=== PATIENT | male | born 1940 | race Caucasian/White ===

== ENCOUNTER 2021-07-18 11:29 | Emergency (ER) | payer MEDICARE, SELFPAY ==
[2021-07-18 11:56] VITALS: BP 171/83; PULSE 71; RESP 21; TEMP 36.7; O2SAT 97; BMI 26.2
--- NOTE | 2021-07-18 12:16 | XR_ITS ---
WS: [id number] Exam: XR chest 1V portable [id number] Date/Time of Exam: 07/18/2021 12:16 PM Reason For Exam: worsening copd Comparison 10/05/2018. Mild groundglass infiltrate noted in the left lower lung zone suspicious for pneumonia. Superimposed chronic interstitial changes noted. There is pulmonary hyperinflation which may indicate COPD. Postop erative changes of previous thoracotomy on the right. Normal cardiomediastinal silhouette. Bilateral apical pleural thickening. XR/XR chest 1V portable [id number] IMPRESSION: 1. Mild groundglass infiltrates seen in the left lower lung zone suspicious for developing pneumonia. 2. Pulmonary hyperinflation which may indicate COPD. Status post prior right-si ded thoracotomy.
--- NOTE | 2021-07-18 12:24 | W.ED.GENADLT ---
Documented by User: PARVIN Zavala 07/18/21 14:15 HPI - General Adult General: Chief complaint: Shortness of Breath/Dyspnea Stated complaint: SOB R leg has sharp pain Time Seen by Provider: 07/18/21 12:08 History of Present Illness: HPI narrative: Says his right calf hurt when he got out of the car today to go shopping at [employer]. Has shoppped. Patient says the leg is pretty much quit hurting. Has not had any other problems with it. Has no history of clots. Has not had any increased shortness of breath. 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 He denies any other problems. Has not been vaccinated. Denies fever chills chest pain. Patient recently completed antibiotics for his lungs and finished those 3 days ago when he was on levofloxacin at that time. He did not have a chest x-ray done. Onset (ago): year(s) Severity: mild Associated symptoms: Reports no associated symptoms and dyspnea (Has had for years has worsened over the last couple years); Deny rash or vomiting Review of Systems Eyes: Denies: eye discharge ENMT: Denies: throat pain, oral sores or nasal congestion Resp: Reports: dyspnea (Has had for years has worsened over the last couple years), non-productive cough and other (Patient is desiring steroid for his nebulizer., Patient has 1 lung.); Denies: wheezing or stridor GI: Denies: vomiting or diarrhea Skin/Breast: Denies: rash Physical Exam Const: COMMON NORMALS: no acute distress (Child appears very well is playful in no distress) GENERAL APPEARANCE: cooperative HENMT: COMMON NORMALS: normocephalic, external ears normal, EAC's normal, TM's normal bilaterally and Normal external nose present HEAD & SCALP: normal to inspection and normocephalic FACE & SINUS: normal facial exam NOSE: Normal external nose present and No nasal discharge present EXTERNAL EAR: Yes external ears normal EXTERNAL AUDITORY CANAL: EAC's normal TYMPANIC MEMBRANE: TM's normal bilaterally MOUTH: Normal oral and palatal mucosa present THROAT: posterior oropharynx normal Eye: COMMON NORMALS: conjunctivae normal CONJUNCTIVA: Yes conjunctivae normal Lymph: LYMPHATIC: no lymphadenopathy noted Chest: COMMONS NORMALS: normal inspection of the chest Resp: COMMON NORMALS: normal respiratory effort, No retractions and No use of accessory muscles AUSCULTATION: rhonchi left lower and breath sounds absent on the right Cardio: COMMON NORMALS: regular rate and regular rhythm RATE: regular rate RHYTHM: regular rhythm GI: COMMON NORMALS: Normal to inspection, nondistended, normoactive bowel sounds present Extremity: COMMON NORMALS: normal to inspection NARRATIVE EXTREMITY EXAM: Right lower extremity with negative Holmans, no swelling redness noted no pain on palpation Skin: COMMON NORMALS: no rashes or lesions noted GENERAL SKIN EXAM: no rashes or lesions noted Course Vital Signs: Vital signs: Vital Signs Temperature 98.1 F 07/18/21 11:56 Pulse Rate 71 07/18/21 11:56 Respiratory Rate 21 H 07/18/21 11:56 Blood Pressure 171/83 07/18/21 11:56 Pulse Oximetry 97 07/18/21 11:56 MDM - General Adult MDM Narrative: Medical decision making narrative: Patient stable. No longer has any calf pain. That cleared up when he is walk around [facility]. Has recently been treated for lung infection, chest x-ray was not done. He took 5 days of levofloxacin said he felt much better after that. Patient is also asking for prescription of Pulmicort which she said is helped him in the past. Did chest x-ray showed groundglass infiltrate left lower lobe. I do not have baseline compare this with. Patient is not having increased shortness of breath the last 2 to 3 weeks. Denies any Covid related symptoms. Patient is unvaccinated against Covid. Strong encourage patient follow-up with Gabriela Lira APN first next week for recheck. Take medication as directed. Discharge Plan Discharge Patient Disposition: Home Clinical Impression: Cough Condition: Stable Prescriptions: New Zithromax Z-Eleno 250 mg tablet See Rx Instructions .ROUTE .COMPLEX Qty: 6 RF: 0 prednisone 20 mg tablet 20 mg PO DAILY Qty: 7 RF: 0 Pulmicort 1 mg/2 mL suspension for nebulization 1 mg inhalation DAILY Qty: 10 RF: 0 Discharge Orders: Discharge ED (Routine); Ordered 07/18/21 Ordered By: Jose Angel Serrano Referrals: Gerald Solorzano, [Primary Care Provider] - Discharge Diet: Usual diet Discharge Activity: Increase activity as tolerated Patient Instructions: COPD (Chronic Obstructive Pulmonary Disease) (ED) Activity Restrictions/Additional Instructions: Follow-up with medical provider as directed. Take medications as prescribed. Return to the ER or your medical provider if condition worsens. Please read and understand discharge instructions. If any questions ask please. Follow-up with PARVIN Jenkins next week and have chest x-ray done to evaluate for effectiveness of current therapy. Coding Level of Care Code ED Customer Success Specialist for Chg Fwd Exam Comprehensive Documented by User: Smith Love MD 07/18/21 15:13 HPI - General Adult General: Chief complaint: Shortness of Breath/Dyspnea Stated complaint: SOB R leg has sharp pain Time Seen by Provider: 07/18/21 12:08 Course ED course: I was available for consultation and supervision from the nurse practitioner during the time the patient was seen in the emergency department. kfs Vital Signs: Vital signs: Vital Signs Temperature 98.1 F 07/18/21 11:56 Pulse Rate 71 07/18/21 11:56 Respiratory Rate 21 H 07/18/21 11:56 Blood Pressure 171/83 07/18/21 11:56 Pulse Oximetry 97 07/18/21 11:56 Discharge Plan Discharge Patient Disposition: Home Clinical Impression: Cough Condition: Stable Prescriptions: New Zithromax Z-Eleno 250 mg tablet See Rx Instructions .ROUTE .COMPLEX Qty: 6 RF: 0 prednisone 20 mg tablet 20 mg PO DAILY Qty: 7 RF: 0 Pulmicort 1 mg/2 mL suspension for nebulization 1 mg inhalation DAILY Qty: 10 RF: 0 Discharge Orders: Discharge ED (Routine); Ordered 07/18/21 Ordered By: Jose Angel Serrano Referrals: Gerald Solorzano DO [Primary Care Provider] - Discharge Diet: Usual diet Discharge Activity: Increase activity as tolerated Patient Instructions: COPD (Chronic Obstructive Pulmonary Disease) (ED) Activity Restrictions/Additional Instructions: Follow-up with medical provider as directed. Take medications as prescribed. Return to the ER or your medical provider if condition worsens. Please read and understand discharge instructions. If any questions ask please. Follow-up with PARVIN Jenkins next week and have chest x-ray done to evaluate for effectiveness of current therapy. Coding Level of Care Code ED Customer Success Specialist for Marc Fwjayne Exam Comprehensive
== END 2021-07-18 13:00 | disposition home or self-care (01) ==
PROVIDERS: Emergency Provider Nurse Practitioner Family; PCP Family Medicine
DX: R05.9 Cough, unspecified (principal)
CPT/HCPCS: 71045; 99282

== ENCOUNTER 2021-09-11 13:53 | Emergency (ER) | payer MEDICARE, SELFPAY ==
[2021-09-11 14:23] VITALS: BP 140/71; PULSE 97; RESP 20; TEMP 38; O2SAT 91; BMI 26.1
--- NOTE | 2021-09-11 14:32 | XR_ITS ---
WS: [id number] XR chest 1V portable [id number] REASON FOR EXAM: sob FINDINGS: The same reticular and groundglass lung opacities seen in the periphery of the left lower lung field on 07/18 and 07/23/2021 are again noted and increased. There are also now some linear lung opacities in the more medial left lower lung. There appear to be some areas of reticular and groundglass density within the right lower lung not pr eviously noted. No other interval change or new finding. XR/XR chest 1V portable [id number] IMPRESSION: Progression of left lung abnormality which presumably represents subacute pneum onitis. There also appears to be new involvement of the right lower lung.
--- NOTE | 2021-09-11 14:38 | PC.NURSE ---
debra placed on 2l NC supplemental oxygen in waiting room
[2021-09-11 15:04] LABS: Hematocrit 41.9 % (42.0-52.0); Hemoglobin 14.2 g/dL (11.7-16.6); Lymphocytes # 0.5 10^3/uL (0.8-4.8); Mean Corpuscular HGB Conc 33.9 g/dL (30.0-36.0); Mean Corpuscular Hemoglobin 31.6 pg (28.0-34.0); Mean Corpuscular Volume 93.1 fl (80-94); Mean Platelet Volume 9.4 fL (7.4-10.4); Monocytes # 0.3 10^3/uL (0.2-0.9); Monocytes % 6.8 %; Neutrophils # 3.79 10^3/uL (1.8-7.7); Neutrophils % 82.8 %; Nucleated Red Blood Cells % 0 %; Platelet Count 126 10^3/cmm (130-400); Red Cell Distribution Width 14.6 % (12.1-15.1); White Blood Count 4.6 10^3/uL (4.0-10.0)
[2021-09-11 15:35] LABS: Alanine Aminotransferase 38 U/L (0-41); Albumin Level 3.9 g/dL (3.5-5.2); Alkaline Phosphatase 72 IU/L (40-130); Anion Gap 18.9 (5-19); Aspartate Amino Transferase 44 U/L (0-40); Blood Urea Nitrogen 11 mg/dL (8-23); Calcium 8.1 mg/dL (8.5-10.5); Carbon Dioxide 22 mmol/L (22-29); Chloride 97 mmol/L (98-107); Globulin 3.2 g/dL (1.3-4.6); Glucose 119 mg/dL (65-115); Osmolality Calculated 279 mOsm/kg (285-295); Potassium 3.9 mmol/L (3.5-5.1); Sodium 134 mmol/L (136-145); Total Bilirubin 1.2 mg/dL (0.15-1.2); Total Protein 7.1 g/dL (6.6-8.7)
--- NOTE | 2021-09-11 15:41 | W.ED.COVID ---
HPI - COVID General: Chief Complaint: Shortness of Breath/Dyspnea Stated Complaint: SOB/FEVER/CONGESTION Time Seen by Provider: 09/11/21 15:52 Triage information: Has fever, cough or shortness of breath. No known COVID + exposure last 14 days History of Present Illness: HPI Narrative: Patient seen at [facility] [address] yesterday placed on cefdinir 300 mg. Patient here because he still has a fever. Patient was evaluated in waiting room. Patient does not appear any acute distress COVID Results: SARS-CoV-2 (PCR) Pending 09/11/21 14:45 09/11/21 Coronavirus Type 229E (PCR) Pending 09/11/21 14:45 09/11/21 Course Vital Signs: Vital signs: Vital Signs Temperature 100.4 F H 09/11/21 14:23 Pulse Rate 97 09/11/21 14:23 Respiratory Rate 20 H 09/11/21 14:23 Blood Pressure 140/71 09/11/21 14:23 Pulse Oximetry 91 09/11/21 14:23 MDM - COVID MDM Narrative: Medical decision making narrative: Brief history and physical exam was performed as part of the triage process. Due to current ED wait time patient will be placed in waiting room until a room becomes available. Explained to patient he/she will be seen in order of severity. Patient is currently safe to wait in the waiting room until we can get them placed. Patient informed that if condition worsens at any time to please let the vest front presser know. Patient had been placed on oxygen while in the waiting room I discussed with patient our plan results of his chest x-ray and labs were available right now. Patient is requesting go home. Patient was placed on cefdinir yesterday by [facility] [address]. Patient says he does not want to wait for results and patient states if he has COVID he has COVID. try to get patient to stay and wait test results. Patient and will discuss this matter. Advised patient that he should stay and be evaluated further. Patient is unvaccinated. When going back to check on the patient triage nurse found that the patient had left. Lab Data: Labs: Lab Results 09/11/21 09/11/21 14:45 14:45 WBC 4.6 10^3/uL 10^3/ uL (4.0-10.0) RBC 4.50 10^6/uL 10^6 /uL (4.1-5.3) Hgb 14.2 g/dL g/dL (11.7-16.6) Hct 41.9 % L % (42.0-52.0) MCV 93.1 fl fl (80-94) MCH 31.6 pg pg (28.0-34.0) MCHC 33.9 g/dL g/dL (30.0-36.0) RDW 14.6 % % (12.1-15.1) Plt Count 126 10^3/cmm L 10 ^3/cmm (130-400) MPV 9.4 fL fL (7.4-10.4) Neut % (Auto) 82.8 % % Lymph % (Auto) 10.0 % % [place] % (Auto) 6.8 % % Eos % (Auto) 0.0 % % Baso % (Auto) 0.0 % % Neut # (Auto) 3.79 10^3/uL 10^3 /uL (1.8-7.7) Lymph # (Auto) 0.5 10^3/uL L 10^ 3/uL (0.8-4.8) [place] # (Auto) 0.3 10^3/uL 10^3/ uL (0.2-0.9) Eos # (Auto) 0.0 10^3/uL 10^3/ uL (0.0-0.8) Baso # (Auto) 0.0 10^3/uL 10^3/ uL (0.0-0.1) Nucleated RBC % (a uto) 0 % % Nucleated RBCs # 0.0 /100WBC /100W BC Sodium 134 mmol/L L mmol /L (136-145) Potassium 3.9 mmol/L mmol/L (3.5-5.1) Chloride 97 mmol/L L mmol/ L (98-107) Carbon Dioxide 22 mmol/L mmol/L (22-29) Anion Gap 18.9 (5-19) BUN 11 mg/dL mg/dL (8-23) Creatinine 0.8 mg/dL mg/dL (0.7-1.2) GFR Calculation Not Reportable Glucose 119 mg/dL H mg/dL (65-115) Calculated Osmolal ity 279 mOsm/kg L mOs m/kg (285-295) Calcium 8.1 mg/dL L mg/dL (8.5-10.5) Total Bilirubin 1.2 mg/dL mg/dL (0.15-1.2) AST 44 U/L H U/L (0-40) ALT 38 U/L U/L (0-41) Alkaline Phosphata se 72 IU/L IU/L (40-130) Total Protein 7.1 g/dL g/dL (6.6-8.7) Albumin 3.9 g/dL g/dL (3.5-5.2) Globulin 3.2 g/dL g/dL (1.3-4.6) COVID Results: SARS-CoV-2 (PCR) Pending 09/11/21 14:45 09/11/21 Coronavirus Type 229E (PCR) Pending 09/11/21 14:45 09/11/21 Discharge Plan Discharge Patient Disposition: Left Against Medical Advice Condition: Stable Prescriptions: No Action Zithromax Z-Eleno 250 mg tablet See Rx Instructions .ROUTE .COMPLEX Qty: 6 RF: 0 prednisone 20 mg tablet 20 mg PO DAILY Qty: 7 RF: 0 Pulmicort 1 mg/2 mL suspension for nebulization 1 mg inhalation DAILY Qty: 10 RF: 0 Patient Instructions: Opioid Safety Coding Level of Care Code ED Automobile Rental Agent for Marc Roberts
[2021-09-11 16:42] LABS: Adenovirus Not Detected (NOT DETECT); Chlamydia Pneumoniae Not Detected (NOT DETECT); Coronavirus 229E,HKU1,NL63,OC4 Not Detected (NOT DETECT); Human Metapneumovirus Not Detected (NOT DETECT); Human Rhinovirus/Enterovirus Not Detected (NOT DETECT); Influenza A Not Detected (NOT DETECT); Influenza A H1 Not Detected (NOT DETECT); Influenza A H1-2009 Not Detected (NOT DETECT); Influenza A H3 Not Detected (NOT DETECT); Influenza B Not Detected (NOT DETECT); Mycoplasma Pneumoniae Not Detected (NOT DETECT); Parainfluenza Virus Type 1 Not Detected (NOT DETECT); Parainfluenza Virus Type 2 Not Detected (NOT DETECT); Parainfluenza Virus Type 3 Not Detected (NOT DETECT); Parainfluenza Virus Type 4 Not Detected (NOT DETECT); Respiratory Syncytial Virus A Not Detected (NOT DETECT); Respiratory Syncytial Virus B Not Detected (NOT DETECT); SARS-COV-2 Detected (NOT DETECT)
== END 2021-09-11 16:35 | disposition left against medical advice (07) ==
PROVIDERS: Emergency Provider Nurse Practitioner Family
DX: U07.1 COVID-19 (principal); R06.02 Shortness of breath; Z53.21 Procedure and treatment not carried out due to patient leaving prior to being seen by health care provider
CPT/HCPCS: 71045; 80053; 85025; 87635; 99282

== ENCOUNTER 2021-09-13 18:53 | Emergency (ER) | payer MEDICARE, SELFPAY ==
[2021-09-13 19:09] VITALS: BP 121/73; PULSE 104; RESP 20; TEMP 36.9; O2SAT 87
--- NOTE | 2021-09-13 19:09 | XRR_ITS ---
PROCEDURE INFORMATION: Exam: XR Chest Exam date and time: 09/13/2021 7:09 PM Age: 81 years old Clinical indication: Cough and shortness of breath; Additional info: Dyspnea, covid TECHNIQUE: Imaging protocol: XR of the chest. Views: 1 view. COMPARISON: No relevant prior studies available. FINDINGS: Lungs: Hyperinflated lungs. Ill-defined opacities at the mid/lower lungs. Pleural spaces: Unremarkable. No pleural effusion. No pneumothorax. Heart/Mediastinum: Top-normal heart size. Bones/joints: Visualized osseous structures are intact. XR/XR chest 1V portable [id number] IMPRESSION: Ill-defined opacities at the mid/lower lung consistent with COVID pneumonia.
== END 2021-09-13 21:32 | disposition left against medical advice (07) ==
PROVIDERS: Emergency Provider Family Medicine; PCP Nurse Practitioner Family
DX: Z53.21 Procedure and treatment not carried out due to patient leaving prior to being seen by health care provider (principal)
CPT/HCPCS: 71045

== ENCOUNTER 2021-09-19 09:20 | Emergency (ER) | payer MEDICARE, SELFPAY ==
[2021-09-19 09:26] VITALS: BP 144/74; PULSE 93; RESP 18; TEMP 36.5; O2SAT 93; BMI 26.1
--- NOTE | 2021-09-19 09:31 | XR_ITS ---
WS: [id number] Exam: XR chest 1V portable [id number] Date/Time of Exam: 09/19/2021 9:38 AM Reason For Exam: covid, sob, cough Comparison 09/13/2021. Bilateral pulmonary infiltrates show little change since the last exam. Heart size is within normal l imits. Signs right-sided thoracotomy. Right-sided pleural thickening noted. No pleural effusion or pn eumothorax. XR/XR chest 1V portable [id number] IMPRESSION: 1. Infiltrates in the mid and lower lung zones showing little change since prio r study.
--- NOTE | 2021-09-19 09:40 | W.ED.COVID ---
HPI - COVID General: Chief Complaint: COVID symptoms Stated Complaint: Sent over by domonique dill for Pneumonia Time Seen by Provider: 09/19/21 09:39 Triage information: Has fever, cough or shortness of breath. Exposure to COVID + person last 14 days COVID Results: SARS-CoV-2 (PCR) Detected (NOT DETECT) A 09/11/21 14:45 09/11/21 Coronavirus Type 229E (PCR) Not detected (NOT DETECT) 09/11/21 14:45 09/11/21 Course Vital Signs: Vital signs: Vital Signs Temperature 97.7 F 09/19/21 09:26 Pulse Rate 93 09/19/21 09:26 Respiratory Rate 18 09/19/21 09:26 Blood Pressure 144/74 09/19/21 09:26 Pulse Oximetry 93 09/19/21 09:26 MDM - COVID COVID Results: SARS-CoV-2 (PCR) Detected (NOT DETECT) A 09/11/21 14:45 09/11/21 Coronavirus Type 229E (PCR) Not detected (NOT DETECT) 09/11/21 14:45 09/11/21 Discharge Plan Discharge Prescriptions: No Action Zithromax Z-Eleno 250 mg tablet See Rx Instructions .ROUTE .COMPLEX Qty: 6 RF: 0 prednisone 20 mg tablet 20 mg PO DAILY Qty: 7 RF: 0 Pulmicort 1 mg/2 mL suspension for nebulization 1 mg inhalation DAILY Qty: 10 RF: 0 Coding Level of Care Code ED Cosmetic Sales Consultant for Marc Roberts
--- NOTE | 2021-09-19 10:01 | CT_ITS ---
WS: [id number] CT CHEST ANGIOGRAPHY WITH REFORMATS HISTORY: SOB x months, recent COVID, worsening pneumonia on CXR TECHNIQUE: Contiguous axial images are obtained through the chest during arterial injection of intrav enous contrast. Images are reconstructed to evaluate the pulmonary arteries. MIP imaging also reviewe d. All CT scans at [facility] use at least one of these dose optimization techniques: automat ed exposure control; mA and/or kV adjustment per patient size (includes targeted exams where dose is matched to clinical indication); or iterative reconstruction. CONTRAST: Omnipaque 350; 72 mL IV. DLP: 655.26 mGy.cm COMPARISON: 09/06/2014 Very good opacification of the pulmonary arteries. No filling defects are identified. Pulmonary arter y size is normal. Mild atherosclerotic changes within the thoracic aorta. Cardiac chambers are normal . No RIGHT heart strain. No pericardial or pleural effusions. Patient is status post RIGHT upper lobectomy. There is volume loss in the LEFT thorax with slight michael ft of midline structures to the LEFT. Mild pleural nodularity in the posterior upper lung similar to the prior study. Multiple small cystic areas within the LEFT upper lobe extending into the lingula ar e now identified. This has more prominent appearance of fibrosis and pneumonia. Similar appearance an d as ago esophageal recess on the RIGHT. There are dense areas of consolidation developing at the RIG HT lung base. There is additional interstitial thickening and atelectasis in the RIGHT middle lobe. I rregular opacification developing with nodularity in the LEFT lower lobe. These changes have all prog ressed since the prior examination from 2014. Increased lymphoid tissue in the hilar regions, greatest on the RIGHT. RIGHT hilar lymph node or grou p of lymph nodes measures 16 x 24 mm. Smaller lymph nodes on the LEFT. Distal RIGHT paraesophageal lymph node measures 11 mm. No adrenal mass. Incompletely visualized nodule from the lateral RIGHT kidney may be a small cyst. Ca nnot further evaluate. Scoliosis thoracic spine. No fractures. Moderate spondylitic changes. CT/CT angio chest PE protcl [id number] IMPRESSION: 1. No pulmonary embolism. 2. Status post RIGHT upper lobectomy. 3. Increasing consolidations at the lung bases. Pneumonia versus neoplasm in t he RIGHT lower lobe. There are additional reticular nodular/cystic changes in t he lingula and RIGHT middle lobe and azygoesophageal recess. Recommend short-te follow-up chest CT in 6 weeks after treatment for pneumonia. 4. Mediastinal and hilar lymphadenopathy may be reactive. Most significant ivory up of lymph nodes is at the RIGHT hilum measuring 16 x 24 mm.
--- NOTE | 2021-09-19 10:02 | W.ED.SOB ---
HPI - SOB/Dyspnea General: Chief Complaint: COVID symptoms Stated Complaint: Sent over by [facility] for Pneumonia Time Seen by Provider: 09/19/21 09:39 Source: patient Mode of arrival: wheelchair Limitations: no limitations History of Present Illness: HPI Narrative: Patient is a 81-year-old male who presents to ED today with a complaint of shortness of breath over the past 3 to 4 months. Patient states he does have a history of COPD in which he treats with budesonide and albuterol. He has a history of lung cancer several years ago that was treated with a right lobectomy. Patient states he has been on 3 different antibiotics through his PCP Savi Lira at [facility] for treatment of pneumonia and symptoms do not seem to be improving. 8 days ago he tested positive for COVID. At the time he complained of fevers, body aches, cough, fatigue but states all of these symptoms have improved. He states that shortness of breath was present for months prior to his COVID diagnosis. He states a few days ago he qualified for home O2 at [facility] and was placed on 2 L of oxygen. He is not wearing this currently. MD elicited complaint: shortness of breath Pertinent past history: COPD and other (lung CA) Onset (ago): month(s) Context: recent illness Timing: constant Associated symptoms: Deny abdominal pain, chest congestion, chest pain, fever(s), hemoptysis, nausea or vomiting Review of Systems Const: Denies: fever(s), chills, body aches, fatigue or malaise ENMT: Denies: throat pain, odynophagia, nasal discharge, nasal congestion or sinus pain Card: Denies: chest pain Resp: Reports: dyspnea; Denies: productive cough, non-productive cough, wheezing, change in phlegm color, hemoptysis or chest congestion GI: Denies: abdominal pain, nausea, vomiting or diarrhea Musc: Denies: neck pain or back pain Skin/Breast: Denies: rash Neuro: Denies: headache(s), numbness in extremities, weakness in extremities or sensory changes Physical Exam Const: COMMON NORMALS: no acute distress, average body habitus, patient oriented x3, no limitations, healthy appearing, alert and well nourished GENERAL APPEARANCE: cooperative ORIENTATION/CONSCIOUSNESS: Yes awake, Yes oriented to person, Yes oriented to place and Yes oriented to time HENMT: COMMON NORMALS: normocephalic and atraumatic HEAD & SCALP: normocephalic and atraumatic Resp: COMMON NORMALS: normal respiratory effort and No use of accessory muscles EFFORT & INSPECTION: Yes able to speak in complete sentences OTHER: pt currently satting at 90% on RA (he is supposed to be wearing home O2) Cardio: COMMON NORMALS: regular rate and regular rhythm RATE: regular rate RHYTHM: regular rhythm Neuro: COMMON NORMALS: patient oriented x3 SENSORIUM/ORIENTATION: Yes alert, Yes oriented to person, Yes oriented to place and Yes oriented to time Course Vital Signs: Vital signs: Vital Signs Temperature 97.7 F 09/19/21 09:26 Pulse Rate 84 09/19/21 12:00 Respiratory Rate 23 H 09/19/21 12:00 Blood Pressure 137/77 09/19/21 12:00 Pulse Oximetry 92 09/19/21 12:00 MDM - SOB/Dyspnea MDM Narrative: Medical decision making narrative: Patient satting anywhere from 83-93% on room air. He maintains an O2 sat of 94- 95% when placed on the 2L O2 that he qualified for two days ago at [facility]. He is afebrile with a normal HR. He has a normal white count and normal procalcitonin level. CXR/CTA showing pneumonia with possible neoplasm to RLL. With a normal white count/procal and treatment with three different abx outpatient I don't feel this is bacterial. I think this is probable malignancy mixed with COVID. He doesn't qualify for MCA. I spoke to Dr. Rocha who feels patient can go home as he sats well on 2L. Recommend follow up with pulmonology-info placed with . We are boarding multiple patients in ED already with no potential for placement anytime soon. She did not feel patient qualifies for hospitalization with/for IV remdesivir. Strict return to ED precautions verbally given. Lab Data: Labs: Lab Results 09/19/21 09/19/21 10:17 10:17 WBC 8.8 10^3/uL 10^3/ uL (4.0-10.0) RBC 4.31 10^6/uL 10^6 /uL (4.1-5.3) Hgb 13.4 g/dL g/dL (11.7-16.6) Hct 39.4 % L % (42.0-52.0) MCV 91.4 fl fl (80-94) MCH 31.1 pg pg (28.0-34.0) MCHC 34.0 g/dL g/dL (30.0-36.0) RDW 14.6 % % (12.1-15.1) Plt Count 274 10^3/cmm 10^3 /cmm (130-400) MPV 9.1 fL fL (7.4-10.4) Neut % (Auto) 84.2 % % Lymph % (Auto) 10.5 % % [place] % (Auto) 4.0 % % Eos % (Auto) 0.6 % % Baso % (Auto) 0.2 % % Neut # (Auto) 7.37 10^3/uL 10^3 /uL (1.8-7.7) Lymph # (Auto) 0.9 10^3/uL 10^3/ uL (0.8-4.8) [place] # (Auto) 0.4 10^3/uL 10^3/ uL (0.2-0.9) Eos # (Auto) 0.1 10^3/uL 10^3/ uL (0.0-0.8) Baso # (Auto) 0.0 10^3/uL 10^3/ uL (0.0-0.1) Nucleated RBC % (a uto) 0 % % Nucleated RBCs # 0.0 /100WBC /100W BC Sodium 139 mmol/L mmol/L (136-145) Potassium 3.9 mmol/L mmol/L (3.5-5.1) Chloride 101 mmol/L mmol/L (98-107) Carbon Dioxide 25 mmol/L mmol/L (22-29) Anion Gap 16.9 (5-19) BUN 10 mg/dL mg/dL (8-23) Creatinine 0.6 mg/dL L mg/dL (0.7-1.2) GFR Calculation Not Reportable Glucose 120 mg/dL H mg/dL (65-115) Calculated Osmolal ity 288 mOsm/kg mOsm/ kg (285-295) Calcium 8.4 mg/dL L mg/dL (8.5-10.5) Total Bilirubin 1.3 mg/dL H mg/dL (0.15-1.2) AST 28 U/L U/L (0-40) ALT 36 U/L U/L (0-41) Alkaline Phosphata se 73 IU/L IU/L (40-130) Total Protein 7.1 g/dL g/dL (6.6-8.7) Albumin 3.7 g/dL g/dL (3.5-5.2) Globulin 3.4 g/dL g/dL (1.3-4.6) Procalcitonin 0.07 ng/mL ng/mL (0-0.5) Imaging Data^: CXR: Radiologist's impression: [facility] [address] [place] [address] XRay Report Signed Patient: Chris Wiggins Unit #: [id number] : 1940 Age/Sex: 81 / M ADM Date: 09/19/21 Loc: ER Room/Bed: Attending Dr: Ordering Provider/Ordering MD: Bhavna Barrios Date of Service: 09/19/21 Procedure(s): XR chest 1V portable [id number] Accession Number(s): [id number] Report Number: [id number] WS: [id number] Exam: XR chest 1V portable [id number] Date/Time of Exam: 09/19/2021 9:38 AM Reason For Exam: covid, sob, cough Comparison 09/13/2021. Bilateral pulmonary infiltrates show little change since the last exam. Heart size is within normal limits. Signs right-sided thoracotomy. Right-sided pleural thickening noted. No pleural effusion or pneumothorax. XR/XR chest 1V portable [id number] IMPRESSION: 1. Infiltrates in the mid and lower lung zones showing little change since prior study. Dictated By: Orion Giordano DO Signed By: Orion Giordano DO Signed Date/Time: 09/19/2158 DD/ 4 CTA Chest: Radiologist's impression: [facility] [address] [place] [id number] Scan Report Signed Patient: Chris Wiggins Unit #: [id number] : 1940 Age/Sex: 81 / M ADM Date: 09/19/21 Loc: ER Room/Bed: Attending Dr: Ordering Provider/Ordering MD: Bhavna Barrios Date of Service: 09/19/21 Procedure(s): CT angio chest PE protcl [id number] Accession Number(s): [id number] Report Number: [id number] WS: [id number] CT CHEST ANGIOGRAPHY WITH REFORMATS HISTORY: SOB x months, recent COVID, worsening pneumonia on CXR TECHNIQUE: Contiguous axial images are obtained through the chest during arterial injection of intravenous contrast. Images are reconstructed to evaluate the pulmonary arteries. MIP imaging also reviewed. All CT scans at [facility] use at least one of these dose optimization techniques: automated exposure control; mA and/or kV adjustment per patient size (includes targeted exams where dose is matched to clinical indication); or iterative reconstruction. CONTRAST: Omnipaque 350; 72 mL IV. DLP: 655.26 mGy.cm COMPARISON: 09/06/2014 Very good opacification of the pulmonary arteries. No filling defects are identified. Pulmonary artery size is normal. Mild atherosclerotic changes within the thoracic aorta. Cardiac chambers are normal. No RIGHT heart strain. No pericardial or pleural effusions. Patient is status post RIGHT upper lobectomy. There is volume loss in the LEFT thorax with slight shift of midline structures to the LEFT. Mild pleural nodularity in the posterior upper lung similar to the prior study. Multiple small cystic areas within the LEFT upper lobe extending into the lingula are now identified. This has more prominent appearance of fibrosis and pneumonia. Similar appearance and as ago esophageal recess on the RIGHT. There are dense areas of consolidation developing at the RIGHT lung base. There is additional interstitial thickening and atelectasis in the RIGHT middle lobe. Irregular opacification developing with nodularity in the LEFT lower lobe. These changes have all progressed since the prior examination from 2014. Increased lymphoid tissue in the hilar regions, greatest on the RIGHT. RIGHT hilar lymph node or group of lymph nodes measures 16 x 24 mm. Smaller lymph nodes on the LEFT. Distal RIGHT paraesophageal lymph node measures 11 mm. No adrenal mass. Incompletely visualized nodule from the lateral RIGHT kidney may be a small cyst. Cannot further evaluate. Scoliosis thoracic spine. No fractures. Moderate spondylitic changes. CT/CT angio chest PE protcl [id number] IMPRESSION: 1. No pulmonary embolism. 2. Status post RIGHT upper lobectomy. 3. Increasing consolidations at the lung bases. Pneumonia versus neoplasm in the RIGHT lower lobe. There are additional reticular nodular/cystic changes in the lingula and RIGHT middle lobe and azygoesophageal recess. Recommend short-term follow-up chest CT in 6 weeks after treatment for pneumonia. 4. Mediastinal and hilar lymphadenopathy may be reactive. Most significant group of lymph nodes is at the RIGHT hilum measuring 16 x 24 mm. Dictated By: Sparkle Nieto DO Signed By: Sparkle Nieto DO Signed Date/Time: 09/19/21 1145 DD/ 1134 Discharge Plan Discharge Patient Disposition: Home Clinical Impression: Pneumonia due to COVID-19 virus, Abnormal chest CT Condition: Stable Prescriptions: New dexamethasone 6 mg tablet 6 mg PO DAILY Qty: 6 RF: 0 No Action Zithromax Z-Eleno 250 mg tablet See Rx Instructions .ROUTE .COMPLEX Qty: 6 RF: 0 prednisone 20 mg tablet 20 mg PO DAILY Qty: 7 RF: 0 Pulmicort 1 mg/2 mL suspension for nebulization 1 mg inhalation DAILY Qty: 10 RF: 0 Discharge Orders: Discharge ED (Routine); Ordered 09/19/21 Ordered By: Bhavna Barrios Referrals: Savi Lira FNP [Primary Care Provider] - Patient Instructions: COVID-19 (Coronavirus Disease 2019) (ED) Activity Restrictions/Additional Instructions: As we discussed you need to be wearing her home O2 at all times. Case management should contact you to set you up with pulmonology. You need to return to the emergency department for worsening shortness of breath or having to increase her home O2 past 4L to maintain O2 sats of 88-90%. 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
[2021-09-19 10:21] LABS: Basophils % 0.2 %; Eosinophils # 0.1 10^3/uL (0.0-0.8); Eosinophils % 0.6 %; Hematocrit 39.4 % (42.0-52.0); Hemoglobin 13.4 g/dL (11.7-16.6); Lymphocytes # 0.9 10^3/uL (0.8-4.8); Lymphocytes % 10.5 %; Mean Corpuscular Hemoglobin 31.1 pg (28.0-34.0); Mean Corpuscular Volume 91.4 fl (80-94); Mean Platelet Volume 9.1 fL (7.4-10.4); Monocytes # 0.4 10^3/uL (0.2-0.9); Neutrophils # 7.37 10^3/uL (1.8-7.7); Neutrophils % 84.2 %; Nucleated Red Blood Cells % 0 %; Platelet Count 274 10^3/cmm (130-400); Red Blood Count 4.31 10^6/uL (4.1-5.3); Red Cell Distribution Width 14.6 % (12.1-15.1); White Blood Count 8.8 10^3/uL (4.0-10.0)
[2021-09-19 10:42] LABS: Alanine Aminotransferase 36 U/L (0-41); Albumin Level 3.7 g/dL (3.5-5.2); Alkaline Phosphatase 73 IU/L (40-130); Anion Gap 16.9 (5-19); Aspartate Amino Transferase 28 U/L (0-40); Blood Urea Nitrogen 10 mg/dL (8-23); Calcium 8.4 mg/dL (8.5-10.5); Carbon Dioxide 25 mmol/L (22-29); Chloride 101 mmol/L (98-107); Globulin 3.4 g/dL (1.3-4.6); Glucose 120 mg/dL (65-115); Osmolality Calculated 288 mOsm/kg (285-295); Potassium 3.9 mmol/L (3.5-5.1); Sodium 139 mmol/L (136-145); Total Bilirubin 1.3 mg/dL (0.15-1.2); Total Protein 7.1 g/dL (6.6-8.7)
[2021-09-19 10:49] LABS: Procalcitonin 0.07 ng/mL (0-0.5)
[2021-09-19 10:55] LABS: Slide Review Slide Review Perform
[2021-09-19 11:57] VITALS: O2SAT 93
[2021-09-19 12:00] VITALS: BP 137/77; PULSE 84; RESP 23; O2SAT 92
--- NOTE | 2021-09-19 12:05 | PC.NURSE ---
Pt sitting in wheelchair when entering room. pt instructed to get in bed. pt hooked up to monitors. pt 82% on room air. nasal cannula placed on 3l of oxygen. pt has labored breathing.
[2021-09-19] MEDS: dexamethasone 10 mg/mL INJ 6 MG IVP (12:25)
[2021-09-19 12:41] VITALS: BP 132/70; PULSE 85; RESP 22; O2SAT 91
--- NOTE | 2021-09-20 09:39 | DCPLANNER ---
Addendum entered by Michelle Myrick 10/25/21 10:12: Patient had a follow up appointment scheduled for 10.[address] Bernal at [facility] - patient did attend appointment. Original Note: real estate transaction manager had message to schedule a follow up appointment for patient with [facility], pulmonology. real estate transaction manager called the [facility] clinic, spoke with Addie, gave clinic patients information. A follow up appointment was scheduled for October at 11:[address] Bernal. real estate transaction manager called and spoke with patients friend, gave her the appointment information.
== END 2021-09-19 12:43 | disposition home or self-care (01) ==
PROVIDERS: Emergency Provider Physician Assistant; PCP Nurse Practitioner Family
DX: U07.1 COVID-19 (principal); J12.82 Pneumonia due to coronavirus disease 2019; R93.89 Abnormal findings on diagnostic imaging of other specified body structures
CPT/HCPCS: 71045; 71275; 80053; 84145; 85025; 96374; 99283; J1100; Q9967

== ENCOUNTER 2021-10-29 09:50 | Outpatient (CLI) | payer MEDICARE, SELFPAY ==
--- NOTE | 2021-10-29 10:30 | CT_ITS ---
WS: [id number] CT CHEST WITHOUT INTRAVENOUS CONTRAST HISTORY: reassess abnormal findings TECHNIQUE: Contiguous 5 mm axial imaging performed on the thorax. Coronal and sagittal reformats are submitted. All CT scans at [facility] use at least one of these dose optimization techniques: automated exposure control; mA and/or kV adjustment per patient size (includes targeted exams where dose is matched to clinical indication); or iterative reconstruction. CONTRAST: None DLP: 833.35 mGy.cm COMPARISON: 09/19/2021 Lungs and central airway: Status post RIGHT upper lobectomy. Moderate improvement in the aeration ove rall. Near complete resolution of the reticular thickening throughout the LEFT upper lobe and in the azygoesophageal recess. Interstitial thickening and reticulation along the inferior RIGHT major fissu re has progressed. There is a more focal consolidation which is pleural-based along the inferior RIGH T major fissure. Focal conglomerate consolidations at the RIGHT lung base have mildly improved. Inter stitial thickening at the LEFT lung base is similar to the prior study. Pleura: No effusion. Mild pleural thickening. Heart and pericardium: Mildly enlarged chambers. No effusion. Mediastinum and lance: Mediastinal and hilar lymph nodes are prominent. No obvious progression since t he prior examination. Please note enlarging lymph nodes at the hilar regions would be difficult to ex clude without IV contrast. The wrist prominent lymphoid tissue noted on the prior study which is prob ably still present. Vessels: Atherosclerosis aorta and mild ectasia. Mild pulmonary enlargement. Chest wall and lower neck: Mild gynecomastia. Upper abdomen: No adrenal mass. Osseous structures: Mild increase in thoracic kyphosis. Osteopenia. Prior rib resection in the RIGHT thorax. CT/CT chest wo con [id number] IMPRESSION: 1. Status post RIGHT upper lobectomy. 2. Overall mostly improved aeration throughout both lungs. 3. Focal area of increasing consolidation along the inferior RIGHT major fissu re with a pleural-based nodule which may be atelectasis. Recommend continued sh ort-term follow-up to evaluate for progression. 4. Irregular shaped soft tissue consolidation at the RIGHT lung base may be at electasis or tumor. This has slightly improved since the prior study and contin ued follow-up is necessary. 5. Cannot evaluate for progression of hilar lymphadenopathy without IV contras t.
== END 2021-10-29 09:51 | disposition home or self-care (01) ==
LOC: RAD 09:51
PROVIDERS: PCP Family Medicine; Visit Provider Internal Medicine Pulmonary Disease
DX: R91.8 Other nonspecific abnormal finding of lung field (principal); Z90.2 Acquired absence of lung [part of]
CPT/HCPCS: 71250

== ENCOUNTER 2021-11-01 06:42 | Outpatient (CLI) | payer MEDICARE, SELFPAY ==
[2021-11-05 03:56] LABS: MTB Complex Respiratory PCR NOT DETECTED; MTB Source SPUTUM
== END 2021-11-01 06:43 | disposition home or self-care (01) ==
LOC: LAB 06:46
PROVIDERS: PCP Family Medicine; Visit Provider Internal Medicine Pulmonary Disease
DX: J47.9 Bronchiectasis, uncomplicated (principal); J69.0 Pneumonitis due to inhalation of food and vomit
CPT/HCPCS: 87070; 87205; 87556

== ENCOUNTER → 2021-11-25 09:45 | Outpatient (BNVA) | payer MEDICARE, SELFPAY | PROVIDERS: PCP Family Medicine; Visit Provider Internal Medicine Pulmonary Disease | DX: J69.0 Pneumonitis due to inhalation of food and vomit (principal); Z85.118 Personal history of other malignant neoplasm of bronchus and lung; Z87.891 Personal history of nicotine dependence; J44.9 Chronic obstructive pulmonary disease, unspecified; Z86.16 Personal history of COVID-19 | CPT/HCPCS: 99214 ==

== ENCOUNTER 2022-01-05 09:52 | Emergency (ER) | payer MEDICARE, SELFPAY ==
[2022-01-05 10:01] VITALS: BP 157/87; PULSE 79; RESP 14; O2SAT 96
--- NOTE | 2022-01-05 10:02 | ED_ITS ---
HPI - Wound/Laceration General: Chief Complaint: Wound/Laceration Stated Complaint: Hurt his finger Time Seen by Provider: 01/05/22 09:56 Source: patient Mode of arrival: ambulatory Limitations: no limitations History of Present Illness: 81-year-old male states that this morning he was going down the stairs and slipped and grabbed the railing. He states he has a metal railing and he hit his right pinky finger on the railing and has a small laceration. He did denies any other injuries. He has pain in that finger he rates a 2 out of 10 bleeding is controlled. Associated symptoms: Denies chills, fever(s), nausea or vomiting Review of Systems Const: Denies: fever(s), chills, body aches or change in appetite Eyes: Denies: blurry vision or eye discomfort ENMT: Denies: throat pain or dental pain Card: Denies: chest pain Resp: Denies: dyspnea GI: Denies: abdominal pain, nausea, vomiting or diarrhea : Denies: dysuria Musc: Denies: neck pain or back pain Skin/Breast: Denies: rash Neuro: Denies: headache(s) Psych: Denies: depression [place]/Lymph: Denies: easy bruising All/Imm: Denies: urticaria PFSH ED PFSH: Social History Smoking and tobacco status: former smoker Quit status (tobacco): has quit using tobacco Year quit tobacco: 2010 Former quit date comment: 2ppd x 53 years Physical Exam Const: COMMON NORMALS: no acute distress, patient oriented x3 and healthy appearing HENMT: COMMON NORMALS: normocephalic and atraumatic HEAD & SCALP: normocephalic and atraumatic Eye: COMMON NORMALS: Equal, round and reactive pupils present and EOMs intact bilaterally PUPIL: Yes Equal, round and reactive pupils present Neck/C-Spine: COMMON NORMALS: full ROM and supple Chest: COMMONS NORMALS: normal inspection of the chest and normal palpation of entire chest wall Resp: COMMON NORMALS: normal respiratory effort, No retractions, No use of accessory muscles and clear to auscultation bilaterally AUSCULTATION: clear to auscultation bilaterally Cardio: COMMON NORMALS: regular rate, regular rhythm and No murmurs present (Cardio) RATE: regular rate RHYTHM: regular rhythm GI: COMMON NORMALS: Normal to inspection, nondistended, normoactive bowel sounds present, Soft to palpation, non-tender and no masses PALPATION: Yes Soft to palpation Extremity: COMMON NORMALS: normal to inspection and full ROM Neuro: COMMON NORMALS: patient oriented x3, moves all extremities and no focal motor deficits Psych: COMMON NORMALS: mental status grossly normal, Normal thought process present and cooperative THOUGHT PROCESS: Normal thought process present Skin: COMMON NORMALS: no rashes or lesions noted NARRATIVE SKIN EXAM: 1 cm superficial laceration to his right pinky finger over the palmar aspect no tendon involvement bleeding controlled GENERAL SKIN EXAM: no rashes or lesions noted Procedures Laceration Laceration 1: Site: upper extremity Side (If applicable): left Size (cm): 1 Description: linear Depth: simple, single layer Pre-repair: irrigated extensively Skin layer closed with: other (dermabond) Course Vital Signs: Vital signs: Vital Signs Pulse Rate 68 01/05/22 10:18 Respiratory Rate 18 01/05/22 10:18 Blood Pressure 157/87 01/05/22 10:18 Pulse Oximetry 96 01/05/22 10:18 MDM - Wound/Laceration Medical Decision Making Patient presents here with a laceration who superficial nature no tendon involvement did repair with tissue adhesive patient denied x-ray he had no signs of fractures on exam he stable for discharge follow-up PCP return if worsening. Discharge Plan Discharge Patient Disposition: Home Clinical Impression: Laceration Condition: Stable Prescriptions: No Action ipratropium-albuterol 0.5 mg-3 mg(2.5 mg base)/3 mL solution for nebulization 3 ml inhalation 6XD PRN (Reason: shortness of breath or wheezing) 0RF albuterol sulfate 90 mcg/actuation HFA aerosol inhaler 2 puff inhalation Q6H PRN0RF multivitamin Tablet 1 tab PO DAILY 0RF omega 7-tyr-agf-fish oil [Fish Oil] 1,200 (144-216) mg capsule PO 0RF ascorbic acid (vitamin C) 500 mg capsule PO 0RF pjkuewlz-ibeaa-igkxkaf-quercet 40-25-10-10 mg capsule PO 0RF cholecalciferol (vitamin D3) 10 mcg (400 unit) capsule 10 mcg PO DAILY 0RF thiamine HCl (vitamin B1) 50 mg tablet 50 mg PO DAILY 0RF garlic 1,500 mg capsule 1,500 mg PO DAILY 0RF aspirin [Adult Aspirin Regimen] 81 mg tablet,delayed release (DR/EC) 81 mg PO DAILY 0RF Bevespi Aerosphere 9-4.8 mcg HFA aerosol inhaler 2 puff inhalation BID Qty: 10.7 3RF guaifenesin [Mucinex] 600 mg tablet extended release 12hr 600 mg PO Q12H PRN (Reason: congestion) Qty: 20 3RF miscellaneous medical supply Kit See Rx Instructions miscellaneous .COMPLEX Qty: 1 0RF Rx Instructions: Discontinue oxygen therapy Discharge Orders: Discharge ED (Routine); Ordered 01/05/22 Ordered By: Nneka Amaya Referrals: Aston Wilson MD [Primary Care Provider] - Discharge Diet: Advance as tolerated Discharge Activity: Resume usual activity Patient Instructions: Skin Adhesive Care (ED) Coding Level of Care Code ED Hospital Chaplain for Chg Fwd Exam Comprehensive
[2022-01-05 10:18] VITALS: BP 157/87; PULSE 68; RESP 18; O2SAT 96
[2022-01-05 10:34] VITALS: BP 153/68; PULSE 85; O2SAT 93
== END 2022-01-05 10:36 | disposition home or self-care (01) ==
PROVIDERS: Emergency Provider Emergency Medicine; PCP Family Medicine
DX: S61.216A Laceration without foreign body of right little finger without damage to nail, initial encounter (principal); W22.8XXA Striking against or struck by other objects, initial encounter
CPT/HCPCS: 12001; 99282

== ENCOUNTER 2022-02-10 12:37 | Outpatient (CLI) | payer MEDICARE, SELFPAY ==
--- NOTE | 2022-02-10 13:30 | CT_ITS ---
WS: [id number] CT CHEST WITHOUT INTRAVENOUS CONTRAST HISTORY: Evaluate for resolution of the consolidation RIGHT lung. TECHNIQUE: Contiguous 5 mm axial imaging performed on the thorax. Coronal and sagittal reformats are submitted. All CT scans at [facility] use at least one of these dose optimization techniques: automated exposure control; mA and/or kV adjustment per patient size (includes targeted exams where dose is matched to clinical indication); or iterative reconstruction. CONTRAST: None DLP: 834.13 mGy.cm COMPARISON: 10/29/2021 and 09/19/2021. Lungs and central airway: Status post RIGHT upper lobectomy. Hyperinflated lungs with chronic emphyse ma. Significant improvement in the scattered areas of consolidation and groundglass attenuation in th e RIGHT lower lung peace and along the fissure. Additional mild pleural thickening at the lung bases and areas of scarring and atelectasis. No new or increasing nodule. Subsegmental areas of atelectasi s in the LEFT lingula. 5 mm nodule LEFT upper lobe. Probably present on the most recent exam of 022. Not definitely present on prior studies but may have been obscured by airspace disease. Pleura: No effusions. Heart and pericardium: Mild cardiomegaly. No effusion. Mediastinum and lance: Mediastinum and hilar lymph nodes would be difficult to visualize without IV co ntrast. No obvious new or enlarging lymph nodes. Vessels: Mild atherosclerosis aorta. Mildly prominent pulmonary artery. Chest wall and lower neck: No soft tissue masses. Upper abdomen: Incompletely visualized 9 mm low-attenuation nodule from the upper pole RIGHT kidney. No adrenal mass. Osseous structures: Moderate RIGHT curvature thoracic spine. No destructive bone lesions. CT/CT chest wo con [id number] IMPRESSION: 1. Status post RIGHT upper lobectomy. 2. Increased consolidation along the RIGHT major fissure and the soft tissue c onsolidation at the RIGHT lung base that were previously described have essenti ally resolved. 3. Atelectasis at the lingula. 4. New 5 mm nodule LEFT upper lobe. May have been present on prior studies but obscured by airspace disease. Recommend 6 month follow-up. 5. Chronic emphysema.
== END 2022-02-10 12:38 | disposition home or self-care (01) ==
LOC: RAD 12:42
PROVIDERS: PCP Family Medicine; Visit Provider Internal Medicine Pulmonary Disease
DX: R91.8 Other nonspecific abnormal finding of lung field (principal); Z90.2 Acquired absence of lung [part of]; J98.11 Atelectasis; R91.1 Solitary pulmonary nodule; J43.9 Emphysema, unspecified
CPT/HCPCS: 71250

== ENCOUNTER → 2022-02-24 09:48 | Outpatient (BNVA) | payer MEDICARE, SELFPAY | PROVIDERS: PCP Family Medicine; Visit Provider Internal Medicine Pulmonary Disease | DX: J69.0 Pneumonitis due to inhalation of food and vomit (principal); Z85.118 Personal history of other malignant neoplasm of bronchus and lung; Z87.891 Personal history of nicotine dependence; R91.1 Solitary pulmonary nodule; U09.9 Post COVID-19 condition, unspecified | CPT/HCPCS: 99214 ==

== ENCOUNTER 2022-04-15 09:46 | Outpatient (CLI) | payer MEDICARE, SELFPAY ==
--- NOTE | 2022-04-15 13:46 | PFTS_ITS ---
Date of Study:04/15/22 Date of Dictation: MECHANICS: Forced vital capacity (FVC) is reduced. Forced expiratory volume in one second (FEV1) is reduced. FEV1/FVC is reduced. FLOW VOLUME LOOP: Reduced flow at all lung volumes with significant scooping. LUNG VOLUMES: Total lung capacity (TLC) is normal. Residual volume (RV) is increased. DIFFUSING CAPACITY FOR CARBON MONOXIDE: Moderately reduced. INTERPRETATION: The prebronchodilator spirometry is consistent with severe airflow obstruction. No postbronchodilator spirometry was performed. Lung volumes are consistent with air trapping. Gas exchange (DLCO) is moderately reduced. MTDD
== END 2022-04-15 09:47 | disposition home or self-care (01) ==
LOC: RT 09:47
PROVIDERS: PCP Family Medicine; Visit Provider Internal Medicine Pulmonary Disease
DX: U07.1 COVID-19 (principal); J44.9 Chronic obstructive pulmonary disease, unspecified
CPT/HCPCS: 94010; 94618; 94726; 94729

== ENCOUNTER → 2022-04-28 07:57 | Outpatient (BNVA) | payer MEDICARE, SELFPAY | PROVIDERS: PCP Family Medicine; Visit Provider Internal Medicine Pulmonary Disease | DX: J69.0 Pneumonitis due to inhalation of food and vomit (principal); Z85.118 Personal history of other malignant neoplasm of bronchus and lung; Z87.891 Personal history of nicotine dependence; Z86.16 Personal history of COVID-19; R91.1 Solitary pulmonary nodule; Z90.2 Acquired absence of lung [part of] | CPT/HCPCS: 99214 ==

== ENCOUNTER 2022-08-11 08:20 | Outpatient (CLI) | payer MEDICARE, SELFPAY ==
--- NOTE | 2022-08-11 09:00 | CTR_ITS ---
PROCEDURE INFORMATION: Exam: CT Chest Without Contrast; Diagnostic Exam date and time: 08/11/2022 8:43 AM Age: 82 years old Clinical indication: Condition or disease; Lung condition and disease; Other: Lung nodule; Primary cancer: History of lung cancer S/P right upper lobectomy; Prior surgery; Surgery type: HX lung cancer with lobectomy in 2010; Patient HX: No cancer tx received; Additional info: 5 mm left upper lobe nodule 6 month f/u lung nodule, HX of covid TECHNIQUE: Imaging protocol: Diagnostic computed tomography of the chest without contrast. Radiation optimization: All CT scans at this facility use at least one of these dose optimization techniques: automated exposure control; mA and/or kV adjustment per patient size (includes targeted exams where dose is matched to clinical indication); or iterative reconstruction. COMPARISON: CT chest con [id number] 02/10/2022 1:52 PM RADIATION DOSE METRICS: Total DLP (mGy-cm): 797.15 FINDINGS: Lungs: Moderate centrilobular emphysema. Status post right upper lobectomy. Stable 5 mm left upper lobe pulmonary nodule. Some nodularity in the right lower lobe measuring up to 6 mm appears stable. No new or enlarging suspicious pulmonary nodules. Pleural spaces: Unremarkable. No pneumothorax. No pleural effusion. Heart: Unremarkable. No cardiomegaly. No pericardial effusion. Coronary arteries: Mild coronary artery calcification. Lymph nodes: Unremarkable. No enlarged lymph nodes. Vasculature: Unremarkable. No aortic aneurysm. Bones/joints: Unremarkable. No acute fracture. Soft tissues: Unremarkable. CT/CT chest wo con [id number] IMPRESSION: Stable pulmonary nodules.
== END 2022-08-11 08:21 | disposition home or self-care (01) ==
PROVIDERS: PCP Family Medicine; Visit Provider Internal Medicine Pulmonary Disease
DX: R91.1 Solitary pulmonary nodule (principal)
CPT/HCPCS: 71250

== ENCOUNTER → 2022-09-29 07:51 | Outpatient (BNVA) | payer MEDICARE, SELFPAY | PROVIDERS: PCP Family Medicine; Visit Provider Internal Medicine Pulmonary Disease | DX: J44.9 Chronic obstructive pulmonary disease, unspecified (principal); Z85.118 Personal history of other malignant neoplasm of bronchus and lung; Z87.891 Personal history of nicotine dependence; Z91.89 Other specified personal risk factors, not elsewhere classified; Z86.16 Personal history of COVID-19; R91.1 Solitary pulmonary nodule; Z90.2 Acquired absence of lung [part of] | CPT/HCPCS: 99214 ==

== ENCOUNTER → 2023-06-01 07:55 | Outpatient (BNVA) | payer MEDICARE, SELFPAY | PROVIDERS: PCP Family Medicine; Visit Provider Internal Medicine Pulmonary Disease | DX: J44.9 Chronic obstructive pulmonary disease, unspecified (principal); Z85.118 Personal history of other malignant neoplasm of bronchus and lung; Z87.891 Personal history of nicotine dependence; Z86.16 Personal history of COVID-19; Z12.2 Encounter for screening for malignant neoplasm of respiratory organs; R91.1 Solitary pulmonary nodule; Z90.2 Acquired absence of lung [part of]; Z87.01 Personal history of pneumonia (recurrent) | CPT/HCPCS: 99214 ==

== ENCOUNTER → 2024-02-01 07:39 | Outpatient (BNVA) | payer MEDICARE, SELFPAY | PROVIDERS: PCP Family Medicine; Visit Provider Internal Medicine Pulmonary Disease | DX: J69.0 Pneumonitis due to inhalation of food and vomit (principal); Z85.118 Personal history of other malignant neoplasm of bronchus and lung; Z87.891 Personal history of nicotine dependence; J32.9 Chronic sinusitis, unspecified; Z86.16 Personal history of COVID-19; J44.9 Chronic obstructive pulmonary disease, unspecified | CPT/HCPCS: 99214 ==

== ENCOUNTER 2024-06-24 12:25 | Emergency (ER) | payer MEDICARE, SELFPAY ==
[2024-06-24] VITALS (7 sets, daily range): BP systolic 130–157; BP diastolic 79–86; PULSE 85–102; RESP 22; TEMP 37.7; O2SAT 85–94; BMI 25.0
--- NOTE | 2024-06-24 12:30 | XR_ITS ---
WS: [id number] Exam: XR chest 1V portable [id number] Date/Time of Exam: 06/24/2024 1:12 PM Reason For Exam: sob Comparison 05/01/2022. Lungs are hyperinflated and clear. Mild left-sided pleural thickening. Cardiomediastinal silhouette i s unremarkable. Signs of right-sided thoracotomy. Chronic interstitial changes. XR/XR chest 1V portable [id number] IMPRESSION: 1. Pulmonary hyperinflation with chronic findings. No acute process.
--- NOTE | 2024-06-24 12:30 | ECG_ITS ---
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 Measurements Intervals [place] Rate: 97 P: 0 ME: 0 QRS: -79 QRSD: 140 T: 78 QT: 344 QTc: 437 Interpretive Statements ATRIAL FIBRILLATION WITH ABERRANT CONDUCTION OR VENTRICULAR PREMATURE COMPLEXES RIGHT BUNDLE BRANCH BLOCK [120+ ms QRS DURATION, UPRIGHT V1, 40+ ms S IN I/aVL/V4/V5/V6] LEFT ANTERIOR FASCICULAR BLOCK [QRS AXIS <= -45, QR IN I, RS IN II] No previous ECG available for comparison Electronically Signed On 06-27-2024 00:11:17 CDT by Joy Sears M.D. [email or web address]
--- NOTE | 2024-06-24 12:52 | ED_ITS ---
HPI - SOB/Dyspnea 2 General: Chief Complaint: Shortness of Breath/Dyspnea Stated Complaint: SOB Time Seen by Provider: 06/24/24 12:36 Source: patient Mode of arrival: ambulatory Limitations: no limitations History of Present Illness: HPI Narrative: 83-year-old male has a history of COPD s tates over the last 3 days has been having fevers along with increasing shortness of breath and a productive cough. Patient was hypoxic here to be placed on 3 L does not wear oxygen at baseline denies any pain denies any vomiting or diarrhea Associated symptoms: Reports fever(s); Deny abdominal pain, chest pain, nausea or vomiting Related Data Home Medications Medication Instructions Recorded Confirmed ascorbic acid (vitamin C) 500 mg 500 mg PO DAILY 10/28/21 06/24/24 capsule aspirin 81 mg tablet,delayed 81 mg PO DAILY 10/28/21 06/24/24 release (Adult Aspirin Regimen) multivitamin 1 tab PO DAILY 10/28/21 06/24/24 omega 2-rdv-isw-fish oil 1,200 mg 1 cap PO DAILY 10/28/21 06/24/24 (144 mg-216 mg) capsule (Fish Oil) cholecalciferol (vitamin D3) 10 5,000 mcg PO DAILY 02/01/24 06/24/24 mcg (400 unit) capsule mecobalamin (vitamin B12) 1,000 125 mcg PO DAILY 02/01/24 06/24/24 mcg lozenges garlic 100 mg tablet 100 mg PO DAILY 06/24/24 06/24/24 Previous Rx's Medication Instructions Recorded guaifenesin 600 mg tablet, 600 mg PO Q12H PRN congestion #20 11/25/21 extended release 12 hr (Mucinex) tabs fluticasone propionate 50 2 spray intranasal DAILY nasal 07/21/23 mcg/actuation nasal congestion/allergic reactions #16 spray,suspension grams ipratropium 0.5 mg-albuterol 3 mg 3 ml inhalation 6XD PRN shortness 07/22/23 (2.5 mg base)/3 mL nebulization of breath or wheezing #90 mL soln albuterol sulfate 90 mcg/actuation 2 puff inhalation Q6H PRN 05/23/24 aerosol inhaler shortness of breath or wheezing #8.5 grams glycopyrrolate 9 mcg-formoterol 2 puff inhalation BID #10.7 grams 05/23/24 4.8 mcg HFA aerosol inhaler (Bevespi Aerosphere) albuterol sulfate 2.5 mg/3 mL 2.5 mg (3 mL) inhalation Q6H 30 06/23/24 (0.083 %) solution for nebulization days #180 mL doxycycline hyclate 100 mg tablet 100 mg PO BID 7 days #14 tabs 06/24/24 prednisone 50 mg tablet 50 mg PO DAILY #5 tabs 06/24/24 Allergies Allergy/AdvReac Type Severity Reaction Status Date / Time Penicillins Allergy Intermediate ALGY-Rash Verified 02/01/24 08:29 Review of Systems 2 Const: Reports: fever(s) and chills; Denies: body aches or change in appetite ENMT: Denies: throat pain or dental pain Card: Denies: chest pain Resp: Reports: dyspnea and productive cough GI: Denies: abdominal pain, nausea, vomiting or diarrhea Musc: Denies: neck pain or back pain Skin/Breast: Denies: rash Neuro: Denies: headache(s) PFSH ED 2 PFSH: Medical History Rhinitis Social History Smoking and tobacco/nicotine status: former use of tobacco/nicotine Quit status (tobacco/nicotine): has quit using Year quit tobacco: 2010 Former quit date comment: 2ppd x 53 years Physical Exam 2 Const: COMMON NORMALS: patient oriented x3 HENMT: COMMON NORMALS: normocephalic and atraumatic HEAD & SCALP: n ormocephalic and atraumatic Eye: COMMON NORMALS: conjunctivae normal CONJUNCTIVA: Yes conjunctivae normal Neck/C-Spine: COMMON NORMALS: full ROM and supple Chest: COMMONS NORMALS: normal inspection of the chest Resp: COMMON NORMALS: No retractions and No use of accessory muscles A USCULTATION: wheezes Cardio: COMMON NORMALS: regular rate, regular rhythm and No murmurs present (Cardio) RATE: regular rate RHYTHM: regular rhythm GI: COMMON NORMALS: Normal to inspection, nondistended, normoactive bowel sounds present, Soft to palpation, non-tender and no masses PALPATION: Yes Soft to palpation Extremity: COMMON NORMALS: normal to inspection and full ROM Neuro: COMMON NORMALS: patient oriented x3, moves all extremities and no focal motor deficits Psych: COMMON NORMALS: mental status grossly normal, Normal thought process present and cooperative THOUGHT PROCESS: Normal thought process present Skin: COMMON NORMALS: no rashes or lesions noted and no wounds GENERAL SKIN EXAM: no rashes or lesions noted Course 2 Vital Signs: Vital signs: Vital Signs Temperature 99.9 F H 06/24/24 12:36 Pulse Rate 85 06/24/24 16:41 Respiratory Rate 22 H 06/24/24 13:22 Blood Pressure 149/80 06/24/24 15:23 Pulse Oximetry 92 06/24/24 16:41 Oxygen Delivery Me thod Nasal Cannula 06/24/24 16:41 Oxygen Flow Rate 5 06/24/24 16:41 MDM - SOB/Dyspnea Medical Decision Making Patient presents here with shortness of breath and fever and cough as well x-ray showed no pneumonia. He does have COPD I strongly recommended patient be admitted he states he does not want to stay in the hospital he just wants home oxygen and antibiotics for home did qualify for 5 L to tell him up with home O2 for 5 L will prescribe him doxycycline he has medical decision-making capacity understands the risks of signing out did sign out AMA I informed if he worsens or wants to return he is to return he understands agrees to plan Medical Records I reviewed the patient's medical records. Lab Data I reviewed the patient's lab results. 06/24/24 12:50 06/24/24 12:50 Labs/Radiology: Radiology Impressions Chest X-Ray 06/24/24 12:30 IMPRESSION: 1. Pulmonary hyperinflation with chronic findings. No acute process. Laboratory Results WBC 8.54 10^3/uL (3.29-11.43) 06/24/24 12:50 RBC 4.50 10^6/uL (3.85-5.65) 06/24/24 12:50 Hgb 14.10 g/dL (11.27-16.99) 06/24/24 12:50 Hct 41.8 % (37-53) 06/24/24 12:50 MCV 92.9 fl (82-101) 06/24/24 12:50 MCH 31.3 pg (27-33) 06/24/24 12:50 MCHC 33.7 g/dL (30-55) 06/24/24 12:50 RDW 13.8 % (12.1-15.1) 06/24/24 12:50 Plt Count 148 10^3/cmm (157-399) L 06/24/24 12:50 MPV 8.7 fL (7.4-10.4) 06/24/24 12:50 Neut % (Auto) 92.1 % 06/24/24 12:50 Lymph % (Auto) 4.0 % 06/24/24 12:50 [place] % (Auto) 2.8 % 06/24/24 12:50 Eos % (Auto) 0.4 % 06/24/24 12:50 Baso % (Auto) 0.2 % 06/24/24 12:50 Neut # (Auto) 7.87 10^3/uL (1.8-7.7) H 06/24/24 12:50 Lymph # (Auto) 0.3 10^3/uL (0.8-4.8) L 06/24/24 12:50 [place] # (Auto) 0.2 10^3/uL (0.2-0.9) 06/24/24 12:50 Eos # (Auto) 0.0 10^3/uL (0.0-0.8) 06/24/24 12:50 Baso # (Auto) 0.0 10^3/uL (0.0-0.1) 06/24/24 12:50 Nucleated RBC % (auto) 0 % 06/24/24 12:50 Nucleated RBCs # 0.0 /100WBC 06/24/24 12:50 Sodium 139 mmol/L (136-145) 06/24/24 12:50 Potassium 4.2 mmol/L (3.5-5.1) 06/24/24 12:50 Chloride 101 mmol/L (98-107) 06/24/24 12:50 Carbon Dioxide 28 mmol/L (22-29) 06/24/24 12:50 Anion Gap 14.2 (5-19) 06/24/24 12:50 BUN 11 mg/dL (8-23) 06/24/24 12:50 Creatinine 0.9 mg/dL (0.7-1.2) 06/24/24 12:50 GFR Calculation Not Reportable 06/24/24 12:50 Glucose 142 mg/dL (65-115) H 06/24/24 12:50 Calculated Osmolality 290 mOsm/kg (285-295) 06/24/24 12:50 Calcium 8.4 mg/dL (8.5-10.5) L 06/24/24 12:50 Total Bilirubin 1.4 mg/dL (0.15-1.2) H 06/24/24 12:50 AST 27 U/L (0-40) 06/24/24 12:50 ALT 22 U/L (0-41) 06/24/24 12:50 Alkaline Phosphatase 85 U/L (40-130) 06/24/24 12:50 NT-Pro-B Natriuret Pep 543 pg/mL (0-450) H 06/24/24 12:50 Total Protein 7.4 g/dL (6.6-8.7) 06/24/24 12:50 Albumin 4.4 g/dL (3.5-5.2) 06/24/24 12:50 Globulin 3.0 g/dL (1.3-4.6) 06/24/24 12:50 Coronavirus (PCR) Negative (Negative) 06/24/24 14:49 Influenza A (PCR) Negative (Negative) 06/24/24 14:49 Influenza Type B (PCR) Negative (Negative) 06/24/24 14:49 RSV (PCR) Negative (Negative) 06/24/24 14:49 All radiology interpretation(s) finalized by discharge EKG Data EKG 1: I personally reviewed and interpreted this EKG as follows: EKG Interpretation Date: 06/24/24 EKG interpretation time: 12:59 Interpretation: afib hr [address] elevation qrs 140 qtc 398 Discharge Plan Discharge Patient Disposition: Left Against Medical Advice Clinical Impression: Acute exacerbation of chronic obstructive airways disease Condition: Stable Prescriptions: New prednisone 50 mg tablet 50 mg PO DAILY Qty: 5 0RF doxycycline hyclate 100 mg tablet 100 mg PO BID 7 Days Qty: 14 0RF No Action multivitamin Tablet 1 tab PO DAILY omega 7-sdq-ggh-fish oil [Fish Oil] 1,200 (144-216) mg capsule 1 cap PO DAILY ascorbic acid (vitamin C) 500 mg capsule 500 mg PO DAILY aspirin [Adult Aspirin Regimen] 81 mg tablet,delayed release (DR/EC) 81 mg PO DAILY cholecalciferol (vitamin D3) 10 mcg (400 unit) capsule 5,000 mcg PO DAILY guaifenesin [Mucinex] 600 mg tablet extended release 12hr 600 mg PO Q12H PRN (Reason: congestion) Qty: 20 3RF fluticasone propionate 50 mcg/actuation spray,suspension 2 spray intranasal DAILY Qty: 16 1RF Rx Instructions: administer into each nostril mecobalamin (vitamin B12) 1,000 mcg lozenge 125 mcg PO DAILY Rx Instructions: allow to dissolve in mouth OR may chew lightly before swallowing ipratropium-albuterol 0.5 mg-3 mg(2.5 mg base)/3 mL solution for nebulization 3 ml inhalation 6XD PRN (Reason: shortness of breath or wheezing) Qty: 90 0RF albuterol sulfate 90 mcg/actuation HFA aerosol inhaler 2 puff inhalation Q6H PRN (Reason: shortness of breath or wheezing) Qty: 8.5 5RF Bevespi Aerosphere 9-4.8 mcg HFA aerosol inhaler 2 puff inhalation BID Qty: 10.7 11RF albuterol sulfate 2.5 mg /3 mL (0.083 %) solution for nebulization 2.5 mg inhalation Q6H 30 Days Qty: 180 11RF garlic 100 mg Tablet 100 mg PO DAILY Other Ambulatory Orders: DME: Oxygen (Order) Location: None Selected Ordered By: Nneka Amaya DME: Oxygen (Order) Location: None Selected Ordered By: Nneka Amaya Referrals: Aston Wilson MD [Primary Care Provider] - Discharge Diet: Advance as tolerated Discharge Activity: Resume usual activity Coding Level of Care Code ED Auto Bumper Straightener for Chg Alejandra
[2024-06-24 12:59] LABS: Basophils % 0.2 %; Eosinophils % 0.4 %; Hematocrit 41.8 % (37-53); Lymphocytes # 0.3 10^3/uL (0.8-4.8); Mean Corpuscular HGB Conc 33.7 g/dL (30-55); Mean Corpuscular Hemoglobin 31.3 pg (27-33); Mean Corpuscular Volume 92.9 fl (82-101); Mean Platelet Volume 8.7 fL (7.4-10.4); Monocytes # 0.2 10^3/uL (0.2-0.9); Monocytes % 2.8 %; Neutrophils # 7.87 10^3/uL (1.8-7.7); Neutrophils % 92.1 %; Nucleated Red Blood Cells % 0 %; Platelet Count 148 10^3/cmm (157-399); Red Cell Distribution Width 13.8 % (12.1-15.1); White Blood Count 8.54 10^3/uL (3.29-11.43)
[2024-06-24] MEDS: acetaminophen 325 mg Tablet 650 MG PO (13:07)
[2024-06-24] MEDS: methylPREDNISolone sod succ 125 mg/2 mL INJ IVP (13:08)
[2024-06-24] MEDS: ipratropium-albuterol 3 mL Neb INHALATION (13:22)
[2024-06-24 13:30] LABS: Alanine Aminotransferase 22 U/L (0-41); Albumin Level 4.4 g/dL (3.5-5.2); Alkaline Phosphatase 85 U/L (40-130); Anion Gap 14.2 (5-19); Aspartate Amino Transferase 27 U/L (0-40); Blood Urea Nitrogen 11 mg/dL (8-23); Calcium 8.4 mg/dL (8.5-10.5); Carbon Dioxide 28 mmol/L (22-29); Chloride 101 mmol/L (98-107); Creatinine Clr Calc Pharmacy 79.2013; Glucose 142 mg/dL (65-115); NT Pro B Type Natriuretic Pept 543 pg/mL (0-450); Osmolality Calculated 290 mOsm/kg (285-295); Potassium 4.2 mmol/L (3.5-5.1); Sodium 139 mmol/L (136-145); Total Bilirubin 1.4 mg/dL (0.15-1.2); Total Protein 7.4 g/dL (6.6-8.7)
[2024-06-24] MEDS: cefTRIAXone 1,000 mg SDV 1000 MG IVP (13:55)
[2024-06-24] MEDS: azithromycin 500 MG in sodium chloride 0.9% 250 ML 250 MG IV (13:57)
[2024-06-24 15:28] LABS: Covid PCR NEGATIVE (Negative); Influenza A NEGATIVE (Negative); Influenza B NEGATIVE (Negative); Respiratory Syncytial Virus Ce NEGATIVE (Negative)
== END 2024-06-24 17:42 | disposition left against medical advice (07) ==
PROVIDERS: Emergency Provider Emergency Medicine; PCP Family Medicine
DX: J44.1 Chronic obstructive pulmonary disease with (acute) exacerbation (principal)
CPT/HCPCS: 0241U; 36415; 71045; 80053; 83880; 85025; 87040; 93005; 94640; 94760; 96374; 96375; 99285; J0456; J0696; J2919; J7050

== ENCOUNTER 2024-08-15 07:52 | Emergency (ER) | payer MEDICARE, SELFPAY ==
[2024-08-15] VITALS (8 sets, daily range): BP systolic 148–154; BP diastolic 62–72; PULSE 74–93; RESP 16–24; TEMP 36.8; O2SAT 85–95; BMI 25.0
--- NOTE | 2024-08-15 08:00 | XRR_ITS ---
PROCEDURE INFORMATION: Exam: XR Chest Exam date and time: 08/15/2024 8:22 AM Age: 84 years old Clinical indication: Cough and dyspnea; Additional info: Dyspnea/cough TECHNIQUE: Imaging protocol: Radiologic exam of the chest. Views: 1 view. COMPARISON: CR XR chest 1V portable [id number] 06/24/2024 1:22 PM FINDINGS: Lungs: The lungs are hyperinflated. There is patchy infiltrate or atelectasis involving the retrocardiac region of the left lung base. No consolidation is otherwise noted. Pleural spaces: Unremarkable. No pleural effusion. No pneumothorax. Heart/Mediastinum: Unremarkable. No cardiomegaly. Bones/joints: Unremarkable. XR/XR chest 1V portable [id number] IMPRESSION: 1. Lung hyperinflation. 2. Patchy infiltrate or atelectasis involving the retrocardiac left lung base.
--- NOTE | 2024-08-15 08:22 | ED_ITS ---
HPI - SOB/Dyspnea 2 General: Chief Complaint: Shortness of Breath/Dyspnea Stated Complaint: SOB Time Seen by Provider: 08/15/24 08:00 History of Present Illness: HPI Narrative: 84-year-old male presents emergency room complaining of shortness of breath productive cough for the last 3 days. He has a history of COPD. He previously was on oxygen but the prescription and was not renewed. He relates that he was tested to be renewed in his oxygen stayed elevated so they did not renew it evidently. Today when he arrives he is 87 to 88% on room air short of breath and wheezing. Improved to 94 to 95% with 2 L by nasal cannula. No hemoptysis denies chest pain or abdominal pain Associated symptoms: Reports chest congestion; Deny abdominal pain, chest pain or fever(s) Related Data Home Medications Medication Instructions Recorded Confirmed ascorbic acid (vitamin C) 500 mg 500 mg PO DAILY 10/28/21 08/15/24 capsule multivitamin 1 tab PO DAILY 10/28/21 08/15/24 omega 9-tpt-mhb-fish oil 1,200 mg 1 cap PO DAILY 10/28/21 08/15/24 (144 mg-216 mg) capsule (Fish Oil) cholecalciferol (vitamin D3) 10 5,000 mcg PO DAILY 02/01/24 08/15/24 mcg (400 unit) capsule mecobalamin (vitamin B12) 1,000 125 mcg PO DAILY 02/01/24 08/15/24 mcg lozenges garlic 100 mg tablet 100 mg PO DAILY 06/24/24 08/15/24 Previous Rx's Medication Instructions Recorded guaifenesin 600 mg tablet, 600 mg PO Q12H PRN congestion #20 11/25/21 extended release 12 hr (Mucinex) tabs albuterol sulfate 90 mcg/actuation 2 puff inhalation Q6H PRN 05/23/24 aerosol inhaler shortness of breath or wheezing #8.5 grams glycopyrrolate 9 mcg-formoterol 2 puff inhalation BID #10.7 grams 05/23/24 4.8 mcg HFA aerosol inhaler (Bevespi Aerosphere) albuterol sulfate 2.5 mg/3 mL 2.5 mg (3 mL) inhalation Q6H 30 06/23/24 (0.083 %) solution for nebulization days #180 mL doxycycline hyclate 100 mg capsule 100 mg PO BID 10 days #20 caps 08/15/24 prednisone 20 mg tablet 20 mg PO TID #15 tabs 08/15/24 Allergies Allergy/AdvReac Type Severity Reaction Status Date / Time Penicillins Allergy Intermediate ALGY-Rash Verified 02/01/24 08:29 Review of Systems 2 Const: Denies: fever(s) or chills Card: Denies: chest pain Resp: Reports: dyspnea, productive cough, wheezing and chest congestion GI: Denies: abdominal pain : Denies: dysuria, urinary frequency or urinary urgency Musc: Denies: neck pain or back pain Skin/Breast: Denies: rash PFSH ED 2 PFSH: Medical History Rhinitis Social History Smoking and tobacco/nicotine status: former use of tobacco/nicotine Quit status (tobacco/nicotine): has quit using Year quit tobacco: 2010 Former quit date comment: 2ppd x 53 years Physical Exam 2 Const: GENERAL APPEARANCE: cooperative ORIENTATION/CONSCIOUSNESS: Yes awake, Yes oriented to person, Yes oriented to place and Yes oriented to time HENMT: COMMON NORMALS: normocephalic, atraumatic and hearing grossly normal bilaterally HEAD & SCALP: normocephalic and atraumatic Resp: AUSCULTATION: rhonchi and wheezes Cardio: COMMON NORMALS: regular rate, regular rhythm and No murmurs present (Cardio) RATE: regular rate RHYTHM: regular rhythm GI: COMMON NORMALS: Soft to palpation and No hepatosplenomegaly present A USCULTATION: Yes normoactive bowel sounds PALPATION: Yes Soft to palpation, No Tenderness to palpation present (GI), No Guarding due to palpation present (GI) and Yes No hepatosplenomegaly present Extremity: COMMON NORMALS: normal to inspection, capillary refill normal, no clubbing, cyanosis or edema, no calf tenderness and no pedal edema Neuro: SENSORIUM/ORIENTATION: Yes oriented to person, Yes oriented to place and Yes oriented to time Skin: COMMON NORMALS: no rashes or lesions noted GENERAL SKIN EXAM: no rashes or lesions noted Course 2 Vital Signs: Vital signs: Vital Signs Temperature 98.2 F 08/15/24 07:58 Pulse Rate 83 08/15/24 09:07 Respiratory Rate 16 08/15/24 09:07 Blood Pressure 149/69 08/15/24 09:07 Pulse Oximetry 90 08/15/24 10:16 Oxygen Delivery Me thod Nasal Cannula 08/15/24 09:07 Oxygen Flow Rate 3 08/15/24 10:16 MDM - SOB/Dyspnea Medical Decision Making Seen today for complaints of shortness of breath feels much better after nebulizers and application of oxygen. Chest x-ray shows possible retrocardiac infiltrate. Previously was on oxygen there was some mixup in getting the prescription handled and it was care signed out to . Retested patient emergency room today he is requiring 3 L by nasal cannula. Will restart that put him on a course of steroids and doxycycline he has a nebulizer at home recommend aggressive use the neck several days follow-up with primary care within a week. Encouraged patient to follow-up with primary care to ensure that his oxygen is continued if needed. Patient at this time states he feels much better with the oxygen he would prefer to go home. Medical Records I reviewed the patient's medical records. Lab Data I reviewed the patient's lab results. 08/15/24 08:46 08/15/24 08:46 Labs/Radiology: Radiology Impressions Chest X-Ray 08/15/24 08:00 IMPRESSION: 1. Lung hyperinflation. 2. Patchy infiltrate or atelectasis involving the retrocardiac left lung base. Laboratory Results WBC 4.34 10^3/uL (3.29-11.43) 08/15/24 08:46 RBC 4.34 10^6/uL (3.85-5.65) 08/15/24 08:46 Hgb 13.50 g/dL (11.27-16.99) 08/15/24 08:46 Hct 40.3 % (37-53) 08/15/24 08:46 MCV 92.9 fl (82-101) 08/15/24 08:46 MCH 31.1 pg (27-33) 08/15/24 08:46 MCHC 33.5 g/dL (30-55) 08/15/24 08:46 RDW 13.7 % (12.1-15.1) 08/15/24 08:46 Plt Count 159 10^3/cmm (157-399) 12/16/24 08:46 MPV 8.6 fL (7.4-10.4) 08/15/24 08:46 Neut % (Auto) 78.8 % 08/15/24 08:46 Lymph % (Auto) 9.9 % 08/15/24 08:46 [place] % (Auto) 9.4 % 08/15/24 08:46 Eos % (Auto) 1.2 % 08/15/24 08:46 Baso % (Auto) 0.5 % 08/15/24 08:46 Neut # (Auto) 3.42 10^3/uL (1.8-7.7) 08/15/24 08:46 Lymph # (Auto) 0.4 10^3/uL (0.8-4.8) L 08/15/24 08:46 [place] # (Auto) 0.4 10^3/uL (0.2-0.9) 08/15/24 08:46 Eos # (Auto) 0.1 10^3/uL (0.0-0.8) 08/15/24 08:46 Baso # (Auto) 0.0 10^3/uL (0.0-0.1) 08/15/24 08:46 Nucleated RBC % (auto) 0 % 08/15/24 08:46 Nucleated RBCs # 0.0 /100WBC 08/15/24 08:46 Sodium 137 mmol/L (136-145) 08/15/24 08:46 Potassium 4.1 mmol/L (3.5-5.1) 08/15/24 08:46 Chloride 99 mmol/L (98-107) 08/15/24 08:46 Carbon Dioxide 27 mmol/L (22-29) 08/15/24 08:46 Anion Gap 15.1 (5-19) 08/15/24 08:46 BUN 11 mg/dL (8-23) 08/15/24 08:46 Creatinine 0.9 mg/dL (0.7-1.2) 08/15/24 08:46 GFR Calculation Not Reportable 08/15/24 08:46 Glucose 133 mg/dL (65-115) H 08/15/24 08:46 Calculated Osmolality 285 mOsm/kg (285-295) 08/15/24 08:46 Calcium 9.2 mg/dL (8.5-10.5) 08/15/24 08:46 Total Bilirubin 1.3 mg/dL (0.15-1.2) H 08/15/24 08:46 AST 28 U/L (0-40) 08/15/24 08:46 ALT 22 U/L (0-41) 08/15/24 08:46 Alkaline Phosphatase 94 U/L (40-130) 08/15/24 08:46 Total Protein 7.7 g/dL (6.6-8.7) 08/15/24 08:46 Albumin 4.1 g/dL (3.5-5.2) 08/15/24 08:46 Globulin 3.6 g/dL (1.3-4.6) 08/15/24 08:46 Coronavirus (PCR) Negative (Negative) 08/15/24 08:46 Influenza A (PCR) Negative (Negative) 08/15/24 08:46 Influenza Type B (PCR) Negative (Negative) 08/15/24 08:46 RSV (PCR) Negative (Negative) 08/15/24 08:46 All radiology interpretation(s) finalized by discharge Discharge Plan Discharge Patient Disposition: Home Clinical Impression: Acute exacerbation of chronic obstructive airways disease Condition: Stable Prescriptions: New doxycycline hyclate 100 mg capsule 100 mg PO BID 10 Days Qty: 20 0RF prednisone 20 mg tablet 20 mg PO TID Qty: 15 0RF Rx Instructions: 1 p.o. 3 times daily x3 days, 1 p.o. twice daily x2 days, 1 p.o. daily x2 days No Action multivitamin Tablet 1 tab PO DAILY omega 8-ncx-usk-fish oil [Fish Oil] 1,200 (144-216) mg capsule 1 cap PO DAILY ascorbic acid (vitamin C) 500 mg capsule 500 mg PO DAILY cholecalciferol (vitamin D3) 10 mcg (400 unit) capsule 5,000 mcg PO DAILY guaifenesin [Mucinex] 600 mg tablet extended release 12hr 600 mg PO Q12H PRN (Reason: congestion) Qty: 20 3RF mecobalamin (vitamin B12) 1,000 mcg lozenge 125 mcg PO DAILY Rx Instructions: allow to dissolve in mouth OR may chew lightly before swallowing albuterol sulfate 90 mcg/actuation HFA aerosol inhaler 2 puff inhalation Q6H PRN (Reason: shortness of breath or wheezing) Qty: 8.5 5RF Bevespi Aerosphere 9-4.8 mcg HFA aerosol inhaler 2 puff inhalation BID Qty: 10.7 11RF albuterol sulfate 2.5 mg /3 mL (0.083 %) solution for nebulization 2.5 mg inhalation Q6H 30 Days Qty: 180 11RF garlic 100 mg Tablet 100 mg PO DAILY Discharge Orders: Discharge ED (Routine); Ordered 08/15/24 Ordered By: Gerald Solorzano Other Ambulatory Orders: DME: Oxygen (Order) Location: None Selected Ordered By: Gerald Solorzano Referrals: Aston Wilson MD [Primary Care Provider] - Discharge Diet: Usual diet Discharge Activity: Resume usual activity Patient Instructions: Opioid Safety, Pain Management Activity Restrictions/Additional Instructions: Thank you for choosing [facility] for your healthcare needs today. It is very important that you follow up as instructed or that you return to the Emergency Department should you have concerns or if your condition changes or worsens in any way. You were seen in the emergency room with complaints of shortness of breath. On examination there is no sign of pneumonia however you appear to have an exacerbation of COPD. Testing in the emergency room showed that you do require 3 L/min of oxygen. Recommend regular use of your albuterol ipratropium bromide nebulizers as well as starting his tape tomorrow and a 10-day course of doxycycline if not improving follow-up with your primary care doctor. Coding Level of Care Code ED Plant Physiology Teacher for Marc Roberts
--- NOTE | 2024-08-15 08:43 | ECG_ITS ---
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 Measurements Intervals [place] Rate: 82 P: 0 [place]: 0 QRS: -83 QRSD: 132 T: 64 QT: 380 QTc: 446 Interpretive Statements ATRIAL FIBRILLATION WITH ABERRANT CONDUCTION OR VENTRICULAR PREMATURE COMPLEXES RIGHT BUNDLE BRANCH BLOCK [120+ ms QRS DURATION, UPRIGHT V1, 40+ ms S IN I/aVL/V4/V5/V6] LEFT ANTERIOR FASCICULAR BLOCK [QRS AXIS <= -45, QR IN I, RS IN II] Compared to ECG 06/24/2024 12:59:14 No significant changes Electronically Signed On 08-15-2024 19:25:39 MANAGER OF RECRUITING by Joy Sears M.D. [email or web address]
[2024-08-15] MEDS: dexamethasone 10 mg/mL INJ IM (08:49)
[2024-08-15] MEDS: budesonide 0.5 mg/2 mL Neb INHALATION (08:54)
[2024-08-15] MEDS: ipratropium-albuterol 3 mL Neb INHALATION (08:54)
[2024-08-15 08:58] LABS: Basophils % 0.5 %; Eosinophils # 0.1 10^3/uL (0.0-0.8); Eosinophils % 1.2 %; Hematocrit 40.3 % (37-53); Lymphocytes # 0.4 10^3/uL (0.8-4.8); Lymphocytes % 9.9 %; Mean Corpuscular HGB Conc 33.5 g/dL (30-55); Mean Corpuscular Hemoglobin 31.1 pg (27-33); Mean Corpuscular Volume 92.9 fl (82-101); Mean Platelet Volume 8.6 fL (7.4-10.4); Monocytes # 0.4 10^3/uL (0.2-0.9); Monocytes % 9.4 %; Neutrophils # 3.42 10^3/uL (1.8-7.7); Neutrophils % 78.8 %; Nucleated Red Blood Cells % 0 %; Platelet Count 159 10^3/cmm (157-399); Red Blood Count 4.34 10^6/uL (3.85-5.65); Red Cell Distribution Width 13.7 % (12.1-15.1); White Blood Count 4.34 10^3/uL (3.29-11.43)
[2024-08-15 09:11] LABS: Alanine Aminotransferase 22 U/L (0-41); Albumin Level 4.1 g/dL (3.5-5.2); Alkaline Phosphatase 94 U/L (40-130); Anion Gap 15.1 (5-19); Aspartate Amino Transferase 28 U/L (0-40); Blood Urea Nitrogen 11 mg/dL (8-23); Calcium 9.2 mg/dL (8.5-10.5); Carbon Dioxide 27 mmol/L (22-29); Chloride 99 mmol/L (98-107); Creatinine Clr Calc Pharmacy 77.8589; Globulin 3.6 g/dL (1.3-4.6); Glucose 133 mg/dL (65-115); Osmolality Calculated 285 mOsm/kg (285-295); Potassium 4.1 mmol/L (3.5-5.1); Sodium 137 mmol/L (136-145); Total Bilirubin 1.3 mg/dL (0.15-1.2); Total Protein 7.7 g/dL (6.6-8.7)
[2024-08-15 09:42] LABS: Covid PCR NEGATIVE (Negative); Influenza A NEGATIVE (Negative); Influenza B NEGATIVE (Negative); Respiratory Syncytial Virus Ce NEGATIVE (Negative)
== END 2024-08-15 11:41 | disposition home or self-care (01) ==
PROVIDERS: Emergency Provider Family Medicine; PCP Family Medicine
DX: J44.1 Chronic obstructive pulmonary disease with (acute) exacerbation (principal); Z11.52 Encounter for screening for COVID-19; Z87.891 Personal history of nicotine dependence
CPT/HCPCS: 0241U; 71045; 80053; 85025; 87070; 87205; 93005; 94640; 94760; 96372; 99285; J1100; J7626

== ENCOUNTER 2024-12-01 08:36 | Emergency (ER) | payer MEDICARE, SELFPAY ==
--- NOTE | 2024-12-01 08:44 | XR_ITS ---
WS: [id number] XR chest 1V portable [id number] REASON FOR EXAM: chest pain FINDINGS: The chest is unchanged compared with the examination of 08/15/2024. There is mild to moderate tortuosity of the thoracic aorta. Normal heart size. Coarsening of the normal interstitium with lucencies in the upper lung peace compatible with central lobar emphysema. Moderate flattening of the hemidiaphragms. No acute pulmonary parenchymal or pleural abnormality. XR/XR chest 1V portable [id number] IMPRESSION: Stable abnormal chest with no acute abnormality as above.
--- NOTE | 2024-12-01 08:44 | ECG_ITS ---
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 Measurements Intervals [place] Rate: 61 P: 0 ID: 0 QRS: -74 QRSD: 141 T: 58 QT: 423 QTc: 427 Interpretive Statements ATRIAL FIBRILLATION RIGHT BUNDLE BRANCH BLOCK [120+ ms QRS DURATION, UPRIGHT V1, 40+ ms S IN I/aVL/V4/V5/V6] LEFT ANTERIOR FASCICULAR BLOCK [QRS AXIS <= -45, QR IN I, RS IN II] Compared to ECG 08/15/2024 08:43:41 Ventricular premature complex(es) no longer present Aberrant conduction of supraventricular beat(s) no longer present Electronically Signed On 12-01-2024 17:34:15 CDT by Carlos Muir M.D. [id number]
[2024-12-01 08:49] VITALS: BP 150/65; PULSE 70; RESP 16; TEMP 36.8; O2SAT 93; BMI 22.5
[2024-12-01 09:10] LABS: Basophils % 0.2 %; Eosinophils # 0.1 10^3/uL (0.0-0.8); Eosinophils % 0.9 %; Hematocrit 39.8 % (37-53); Lymphocytes # 0.8 10^3/uL (0.8-4.8); Lymphocytes % 8.6 %; Mean Corpuscular HGB Conc 33.4 g/dL (30-55); Mean Corpuscular Hemoglobin 31.2 pg (27-33); Mean Corpuscular Volume 93.4 fl (82-101); Mean Platelet Volume 8.8 fL (7.4-10.4); Monocytes # 0.7 10^3/uL (0.2-0.9); Monocytes % 7.5 %; Neutrophils # 7.98 10^3/uL (1.8-7.7); Neutrophils % 82.6 %; Nucleated Red Blood Cells % 0 %; Platelet Count 141 10^3/cmm (157-399); Red Blood Count 4.26 10^6/uL (3.85-5.65); White Blood Count 9.67 10^3/uL (3.29-11.43)
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
[2024-12-01] MEDS: aspirin 81 mg Chew Tablet 324 MG PO (09:18)
[2024-12-01 09:31] LABS: Alanine Aminotransferase 15 U/L (0-41); Albumin Level 4.2 g/dL (3.5-5.2); Alkaline Phosphatase 78 U/L (40-130); Anion Gap 13.4 (5-19); Aspartate Amino Transferase 17 U/L (0-40); Blood Urea Nitrogen 11 mg/dL (8-23); Carbon Dioxide 27 mmol/L (22-29); Chloride 105 mmol/L (98-107); Creatinine Clr Calc Pharmacy 74.6113; Globulin 2.4 g/dL (1.3-4.6); Glucose 126 mg/dL (65-115); Osmolality Calculated 293 mOsm/kg (285-295); Potassium 4.4 mmol/L (3.5-5.1); Sodium 141 mmol/L (136-145); Total Bilirubin 1.3 mg/dL (0.15-1.2); Total Protein 6.6 g/dL (6.6-8.7)
[2024-12-01 09:36] LABS: Troponin(5th) Baseline 17 ng/L (0-15)
[2024-12-01 10:02] LABS: Bacteria Urine None Seen /hpf; RBC Urine 0-2 /hpf (0-2); Squamous Epithelial Cell Urine 0-5 /hpf (0-5); WBC Urine 0-5 /hpf (0-5)
[2024-12-01 10:25] LABS: Add Urine Microscopic? YES; Bilirubin Urine 1+ (Negative); Blood Urine Neg (Negative); Glucose Urine UA Norm (Normal); Ketones Urine Negative (Negative); Leukocyte Esterase Urine Negative (Negative); Nitrate Urine Negative (Negative); Protein Urine Neg (Negative); Specific Gravity, Urine 1.015 (1.005-1.030); Urine Appearance Cloudy (CLEAR); Urine Color Yellow (Yellow); Urobilinogen Urine Neg (Negative); pH Urine 8 (5-7)
[2024-12-01 10:43] VITALS: BP 123/67; PULSE 74; O2SAT 94
--- NOTE | 2024-12-01 10:46 | ECG_ITS ---
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1940 Requested By: Gerald Peter Order Number: [id number] Reading MD: SAMMI ARANA Measurements Intervals [place] Rate: 67 P: 0 [place]: 0 QRS: -75 QRSD: 136 T: 42 QT: 417 QTc: 442 Interpretive Statements ATRIAL FIBRILLATION RIGHT BUNDLE BRANCH BLOCK [120+ ms QRS DURATION, UPRIGHT V1, 40+ ms S IN I/aVL/V4/V5/V6] LEFT ANTERIOR FASCICULAR BLOCK [QRS AXIS <= -45, QR IN I, RS IN II] Compared to ECG 12/01/2024 08:44:58 No significant changes Electronically Signed On 12-04-2024 21:55:34 CDT by SMAMI ARANA [email or web address]
[2024-12-01 11:47] LABS: Troponin 5 2HR 16.63 ng/L (0-15)
[2024-12-01 11:51] LABS: Troponin 5 2HR Delta -0.37 ABS# (0-10)
[2024-12-01 13:00] VITALS: BP 122/69; PULSE 74; O2SAT 95
[2024-12-01 13:02] VITALS: BP 122/69; PULSE 74; O2SAT 96
== END 2024-12-01 13:05 | disposition home or self-care (01) ==
PROVIDERS: Emergency Provider Family Medicine; PCP Family Medicine
DX: R07.81 Pleurodynia (principal); Z87.891 Personal history of nicotine dependence
CPT/HCPCS: 36415; 71045; 80053; 81001; 84484; 85025; 93005; 99285; J9999